=== PATIENT | male | born 1990 | race Caucasian/White ===

== ENCOUNTER 2020-05-22 19:59 | Emergency (ER) | payer OTHER, SELFPAY ==
--- NOTE | ~2020-05-22 | XR_ITS ---
EXAMINATION: XR ANKLE, LEFT CLINICAL INFORMATION: Injury. Pain. COMPARISON: Left ankle 09/08/2014 TECHNIQUE: 3 views of the left ankle. FINDINGS: There is soft tissue swelling at the lateral malleolus. There is no fracture. No dislocation. The ankle mortise is congruent. XR/XR ankle LT min 3V IMPRESSION: Soft tissue swelling at lateral malleolus. No osseous abnormality.
[2020-05-22 20:43] VITALS: BP 136/85; PULSE 89; RESP 16; TEMP 36.7; O2SAT 97; BMI 33.4
--- NOTE | 2020-05-22 21:44 | ED_ITS ---
HPI - Extremity Injury (Lower) General Chief Complaint: Extremity Injury, Lower <DINO Hardin - Last Filed: 05/22/20 21:51> Stated Complaint: Ankle Inj <DINO Hardin - Last Filed: 05/22/20 21:51> Time Seen by Provider: 05/22/20 21:20 <DINO Hardin - Last Filed: 05/22/20 21:51> Source: patient and family <DINO Hardin - Last Filed: 05/22/20 21:51> Mode of arrival: ambulatory <DINO Hardin - Last Filed: 05/22/20 21:51> Limitations: no limitations <DINO Hardin - Last Filed: 05/22/20 21:51> History of Present Illness HPI Narrative: 29-year-old male presenting to the ED with his significant other with complaints of left ankle pain after he twisted his ankle on a model hole. Denies head injury or loss of consciousness or any other injuries complaints or concerns at this time. <DINO Hardin - Last Filed: 05/22/20 21:51> MD complaint: ankle injury <DINO Hardin - Last Filed: 05/22/20 21:51> Onset (ago): hour(s) (Prior to arrival) <DINO Hradin - Last Filed: 05/22/20 21:51> Type of Injury: unknown <DINO Hardin - Last Filed: 05/22/20 21:51> Place: street/outdoors <DINO Hardin - Last Filed: 05/22/20 21:51> Severity: severe <DINO Hardin - Last Filed: 05/22/20 21:51> Severity scale (1-10): 10 <DINO Hardin - Last Filed: 05/22/20 21:51> Relieving factors: nothing <DINO Hardin - Last Filed: 05/22/20 21:51> Exacerbating factors: weight bearing, movement and palpation <DINO Hardin - Last Filed: 05/22/20 21:51> Context: other (Near fall) <DINO Hardin - Last Filed: 05/22/20 21:51> Associated symptoms: swelling and able to partially bear weight <DINO Hardin - Last Filed: 05/22/20 21:51> Other symptoms: none <DINO Hardin Last Filed: 05/22/20 21:51> Related Data Home Medications: Previous Rx's Medication Instructions Recorded acetaminophen [Tylenol Extra 1,000 mg PO QID PRN #14 tab 05/22/20 Strength] ibuprofen 800 mg PO Q8H PRN #14 tab 05/22/20 oxycodone 5 mg PO BID PRN #10 tab 05/22/20 <DINO Hardin - Last Filed: 05/22/20 21:51> Allergies/Adverse Reactions: Allergies Allergy/AdvReac Type Severity Reaction Status Date / Time No Known Allergies Allergy Verified 05/22/20 20:50 <DINO Hardin - Last Filed: 05/22/20 21:51> Review of Systems Review of Systems: Constitutional : No changes in activity, No lethargy, No recent prior head injury, No agitation, No increased fussiness ENT/Mouth : No Ear Pain, No Nasal discharge/drainage Eyes: No Eye Pain, No Swelling, No Redness, No Foreign Body, No Vision Changes Cardiovascular : No Chest Pain, No SOB Respiratory : No Cough Gastrointestinal : No Nausea, No Vomiting, No abdominal Pain Genitourinary : No Dysuria, No Urinary Frequency, No Urinary Incontinence, No Urgency, No Flank Pain Musculoskeletal : + joint pain, No neck stiffness, No back pain/injury Skin : No lacerations Neuro : No unsteady gait, No Paresthesias, No Loss of Consciousness, No altered mental status, No Headache <DINO Hardin Last Filed: 05/22/20 21:51> Yes all other systems are reviewed and are negative <DINO Hardin - Last Filed: 05/22/20 21:51> [facility] Past Medical History Attestation statement: The following information was validated with the patient. <DINO Hardin Last Filed: 05/22/20 21:51> Medical History: Medical History Asthma <DINO Hardin Last Filed: 05/22/20 21:51> Social History Social History: Social History Alcohol intake: never Smoked in Last 30 Days: No Use of substances other than those prescribed or required for medical reasons: No Advance Directives: No Advance Directives Information Provided: Yes <DINO Hardin - Last Filed: 05/22/20 21:51> Physical Exam Vital Signs: Vital Signs: Last Vital Signs Temp 98.5 F 05/22/20 22:00 Pulse 91 05/22/20 22:00 Resp 20 05/22/20 22:00 BP 140/82 H 05/22/20 22:00 Pulse Ox 99 05/22/20 22:00 Body Mass Index 33.4 vital signs have been reviewed as normal and appeared to be correct. Blood pressure normal. Heart rate normal. Respiration rate normal. Temperature normal. Oxygen saturation normal. <DINO Hardin - Last Filed: 05/22/20 21:51> Vital Signs: Last Vital Signs Temp 98.5 F 05/22/20 22:00 Pulse 91 05/22/20 22:00 Resp 20 05/22/20 22:00 BP 140/82 H 05/22/20 22:00 Pulse Ox 99 05/22/20 22:00 Body Mass Index 33.4 <Matthew Lovett MD - Last Filed: 06/11/20 06:14> Appearance: Alert. Oriented X3. No acute distress. Head: Normal external exam. Normocephalic. Atraumatic. Eyes: PERRLA. EOMI. Conjunctiva and sclera normal. Eyelids normal. ENT: Pharynx normal. Uvula midline. Moist mucous membranes. Neck: Normal inspection. Neck supple. FROM. No adenopathy. No meningeal signs. No neck mass noted. CVS: Normal heart rate and rhythm. Heart sound normal. No murmurs noted. Pulses normal throughout. Respiratory: No respiratory distress. Painless inspiration. Back: No CVA tenderness. Full range of motion noted. Skin: Skin warm and dry. Normal skin color. Normal skin turgor. No rashes/lesions/lacerations noted. Extremities: Patient with moderate tenderness to palpation and soft tissue swelling to the lateral and medial aspect of the left ankle. No obvious laxity noted. Patient has full range of motion. No obvious deformities noted. No signs of infection. Otherwise all other Extremities exhibit normal range of motion and nontender. Neuro: Oriented X 3. No motor deficit. No sensory deficit. Reflexes normal. <DNIO Hardin - Last Filed: 05/22/20 21:51> Course Course Course Narrative: Will place in an ortho boot treat symptomatic tx instructions follow-up with orthopedics in 1-2 weeks for repeat imaging and instructions to return if any new or worsening symptoms. Patient understands agrees the plan. <DINO Hardin - Last Filed: 05/22/20 21:51> I have reviewed the chart <Matthew Lovett MD - Last Filed: 06/11/20 06:14> Procedures Orthopedic Splinting/Casting Injury #1: Side: left <DINO Hardin - Last Filed: 05/22/20 21:51> Lower Extremity Injury Location: ankle <DINO Hardin - Last Filed: 05/22/20 21:51> Lower Extremity Immobilizer: boot orthosis <DINO Hardin - Last Filed: 05/22/20 21:51> MDM - Extremity Injury (Lower) Medical Records Attestation: I reviewed the patient's medical records. <DINO Hardin - Last Filed: 05/22/20 21:51> Imaging Data Left ankle x-ray: Attestation: I personally reviewed and interpreted this imaging study as follows: <DINO Hardin - Last Filed: 05/22/20 21:51> Radiologist's impression: FINDINGS: There is soft tissue swelling at the lateral malleolus. There is no fracture. No dislocation. The ankle mortise is congruent. XR/XR ankle LT min 3V IMPRESSION: Soft tissue swelling at lateral malleolus. No osseous abnormality. <DINO Hardin - Last Filed: 05/22/20 21:51> Discharge Plan Discharge Clinical Impression: Ankle sprain and strain <DINO Hardin - Last Filed: 05/22/20 21:51> Patient Disposition: Home, Self-Care <DINO Hardin - Last Filed: 05/22/20 21:51> Instructions: Ankle Sprain (ED), Walking Boot (ED) <DINO Hardin - Last Filed: 05/22/20 21:51> Prescriptions: New ibuprofen 800 mg tablet 800 mg PO Q8H PRN (Reason: pain) Qty: 14 RF: 0 acetaminophen [Tylenol Extra Strength] 500 mg tablet 1,000 mg PO QID PRN (Reason: fever or pain) Qty: 14 RF: 0 oxycodone 5 mg tablet 5 mg PO BID PRN (Reason: pain) Qty: 10 RF: 0 <DINO Hardin - Last Filed: 05/22/20 21:51> Referrals: Loren Amador MD [Physician] - 2 days (Call tomorrow to make a follow- up appointment within the next week or to) <DINO Hardin - Last Filed: 05/22/20 21:51> Stand Alone Forms: Work/School Release <DINO Hardin - Last Filed: 05/22/20 21:51> Interventions: ED Discharge Assessment Last Done: 05/22/20 22:58 <DINO Hardin - Last Filed: 05/22/20 21:51> Discharge Date/Time: 05/22/20 23:05 <DINO Hardin - Last Filed: 05/22/20 21:51> Print Language: Kiswahili <DINO Hardin - Last Filed: 05/22/20 21:51>
[2020-05-22] MEDS: Ibuprofen 800 MG TABLET PO (21:53)
[2020-05-22] MEDS: oxyCODONE HCl Immed Release 5 MG TABLET PO (21:53)
[2020-05-22 22:00] VITALS: BP 140/82; PULSE 91; RESP 20; TEMP 36.9; O2SAT 99
== END 2020-05-22 23:05 | disposition home or self-care (01) ==
PROVIDERS: Emergency Provider Emergency Medicine; PCP Internal Medicine
DX: S93.402A Sprain of unspecified ligament of left ankle, initial encounter (principal); M25.572 Pain in left ankle and joints of left foot; X50.1XXA Overexertion from prolonged static or awkward postures, initial encounter; Y93.01 Activity, walking, marching and hiking; Y92.9 Unspecified place or not applicable; Y99.9 Unspecified external cause status; Z79.899 Other long term (current) drug therapy
CPT/HCPCS: 29515; 73610; 99284